=== PATIENT | female | born 1990 | race Caucasian/White ===

== ENCOUNTER 2016-09-03 18:00 | Emergency (ER) | payer SELFPAY ==
[~2016-09-03] VITALS: Ht 160 cm; Wt 105.9 kg
[~2016-09-03 18:00] MED LIST: CIPR250T2 PO; LORT5TAB PO; Z.0.NO CURRENT MEDS
[2016-09-03 18:03] VITALS: BP 159/109; PULSE 92; RESP 16; TEMP 98.1; O2SAT 100
[2016-09-03] MEDS ORDERED: SODIUM CHLOR 0.9% 1000 ML INJ 1,000 ML IV SCH (18:39)
--- NOTE | 2016-09-03 18:43 | PD ---
HPI Chief Complaint: GI Complaint Time Seen by Provider: 18:33 Travel History International Travel<30 days: No Contact w/Intl Traveler<30days: No Traveled to known affect area: No History of Present Illness HPI The patient is a 25-year-old female who presents to the emergency department for left flank pain. The patient states she was driving home at approximate 4:45 PM when she developed sharp left-sided flank pain. The pain was located in the lower aspect of her ribs and radiated from the left flank to the epigastrium. The pain was sharp, stabbing, associated with nausea. The patient arrived him and subsequently had 2 episodes of vomiting. She denied any shortness of breath, upper chest pain, or pleuritic chest pain. She denied any radiation of the pain down into the groin. She denied any dysuria, frequency, urgency, or hematuria. The pain at 4:45 PM was 10/10. Upon arrival the patient's pain was 6/10, is now improved to 4/10. She denies any history of known gastritis, pancreatitis, biliary colic. She denies any previous abdominal surgeries. The patient's last menstrual cycle was August 14, 2016, she denies . Her is been out of town 9 weeks. Symptoms are moderate, slightly self alleviating after vomiting, and there are no known exacerbating factors. The patient denies any associated history of pulmonary embolism, DVT, recent travel, recent surgeries, or recent hospitalizations. PFSH Past Medical History Cancer: No Diabetes: No Glaucoma: No Hepatitis: No Hiatal Hernia: No Hypertension: No Immunizations Current: Yes Thyroid Disease: No ?: Not LMP: 08/14/16 Past Surgical History Arteriovenous Shunt: Yes Pacemaker: No Tonsillectomy: Yes Other Surgery: Yes (RHINOPLASTY) Social History Alcohol Use: No Tobacco Use: No Substance Use: No Allergies-Medications (Allergen,Severity, Reaction): Coded Allergies: No Known Allergies (Verified , 09/03/16) Reported Meds & Prescriptions Reported Meds & Active Scripts Active No Active Prescriptions or Reported Medications Review of Systems Except as stated in HPI: all other systems reviewed are Neg General / Constitutional: No: Fever Cardiovascular: No: Chest Pain or Discomfort Respiratory: No: Shortness of Breath Gastrointestinal: Positive: Nausea, Vomiting, Abdominal Pain, No: Diarrhea Genitourinary: Positive: Flank Pain, No: Urgency, Frequency, Dysuria, Hematuria, Discharge Skin: No Rash Physical Exam Narrative GENERAL: Awake, alert, nontoxic-appearing 25-year-old female who appears her stated age and is in no acute respiratory distress. SKIN: Focused skin assessment warm/dry. HEAD: Atraumatic. Normocephalic. EYES: Pupils equal and round. No scleral icterus. No injection or drainage. ENT: No nasal bleeding or discharge. Mucous membranes pink and moist. NECK: Trachea midline. No JVD. CARDIOVASCULAR: Regular rate and rhythm. No murmur appreciated. Heart rate in the 80s. RESPIRATORY: No accessory muscle use. Clear to auscultation. Breath sounds equal bilaterally. GASTROINTESTINAL: Abdomen soft, obese, no rebound tenderness. Back: No CVA tenderness. MUSCULOSKELETAL: No obvious deformities. No clubbing. No cyanosis. No edema. Calves are soft bilaterally. NEUROLOGICAL: Awake and alert. No obvious cranial nerve deficits. Motor grossly within normal limits. Normal speech. PSYCHIATRIC: Appropriate mood and affect; insight and judgment normal. Data Data Last Documented VS Vital Signs Date Time Temp Pulse Resp B/P Pulse Ox O2 Delivery O2 Flow Rate FiO2 09/03/16 18:03 98.1 92 16 159/109 100 Orders Complete Blood Count With Diff (09/03/16 18:39) Comprehensive Metabolic Panel (09/03/16 18:39) Lipase (09/03/16 18:39) Urinalysis - C+S If Indicated (09/03/16 18:39) Iv Access Insert/Monitor (09/03/16 18:39) Ecg Monitoring (09/03/16 18:39) Oximetry (09/03/16 18:39) Morphine Inj (Morphine Inj) (09/03/16 18:45) Ondansetron Inj (Zofran Inj) (09/03/16 18:45) Sodium Chlor 0.9% 1000 Ml Inj (Ns 1000 M (09/03/16 18:39) Sodium Chloride 0.9% Flush (Ns Flush) (09/03/16 18:45) Electrocardiogram (09/03/16 18:39) Ketorolac Inj (Toradol Inj) (09/03/16 18:45) Ed Urine Pregnancytest Poc (09/03/16 18:39) Chest, Single Ap (09/03/16 ) [facility] Medical Decision Making Medical Screen Exam Complete: Yes Emergency Medical Condition: Yes Medical Record Reviewed: Yes Interpretation(s) EKG reveals normal sinus rhythm with a rate 85. No ischemic changes or ectopy noted. Differential Diagnosis Differential diagnosis includes nephrolithiasis, pyelonephritis, pulmonary embolism, pancreatitis, bowel gas pain, pericarditis, ectopic . Narrative Course IV was established, labs are drawn and sent, and the patient was placed on cardiac telemetry monitoring and continuous pulse oximetry monitoring. EKG was ordered and interpreted. The patient was administered morphine, Toradol, Zofran , and IV fluids. Chest x-ray was obtained. The patient was signed out at 7 PM laboratory evaluation pending. Scripts No Active Prescriptions or Reported Meds Condition: Stable Juan Pablo Sandhu MD Sep 03, 2016 18:43
[2016-09-03] MEDS ORDERED: KETOROLAC TROMETHAMINE 30 MG/ML (IVP) VIAL IVP ONE (18:45)
[2016-09-03] MEDS ORDERED: MORPHINE SULFATE 4 MG/ML INJ IV PUSH ONE (18:45)
[2016-09-03] MEDS ORDERED: SODIUM CHLORIDE 0.9% FLUSH 10 ML FLUSH IV FLUSH PRN (18:45)
[2016-09-03] MEDS ORDERED: ONDANSETRON HCL 4 MG/2 ML VIAL IVP ONE (18:45)
[2016-09-03 18:58] LABS: AUTOMATED NEUTROPHIL # 9.6 TH/MM3 (1.8-7.7); BASOPHIL % 0.3 % (0.0-2.0); EOSINOPHIL # 0.3 TH/MM3 (0-0.4); EOSINOPHIL % 2.5 % (0.0-4.0); LYMPH % 12.8 % (9.0-44.0); LYMPHOCYTE # 1.5 TH/MM3 (1.0-4.8); MEAN CELL VOLUME 82.2 FL (80.0-100.0); MEAN CORPUSCULAR HEMOGLOBIN 28.4 PG (27.0-34.0); MEAN CORPUSCULAR HGB CONC 34.5 % (32.0-36.0); MONO % 3.4 % (0.0-8.0); PLATELET COUNT 295 TH/MM3 (150-450); RED BLOOD COUNT 4.63 MIL/MM3 (4.00-5.30); WHITE BLOOD COUNT 11.8 TH/MM3 (4.0-11.0)
[2016-09-03 19:05] VITALS: BP 140/78; PULSE 88; RESP 18; TEMP 98.1; O2SAT 100
[2016-09-03 19:05] LABS: CHLORIDE 108 MEQ/L (98-107); SODIUM (NA) 142 MEQ/L (136-145)
[2016-09-03 19:09] LABS: ANION GAP 8 MEQ/L (5-15); BICARBONATE 26.2 MEQ/L (21.0-32.0); BLOOD UREA NITROGEN 13 MG/DL (7-18); HEMO FLAGS AUTO DIFF
[2016-09-03 19:12] LABS: ALT (GPT) 26 U/L (10-53); AST (GOT) 15 U/L (15-37); GLOMERULAR FILTRATION RATE 100 ML/MIN (>89)
[2016-09-03 19:14] LABS: TOTAL BILIRUBIN ADULT 0.3 MG/DL (0.2-1.0)
[2016-09-03 19:15] LABS: ALKALINE PHOSPHATASE 85 U/L (45-117)
--- NOTE | 2016-09-03 19:17 | RADRPT ---
EXAM DATE/TIME: 09/03/2016 18:51 [facility] COMPARISON: No previous studies available for comparison. INDICATIONS : Chest and abdominal pain. MEDICAL HISTORY : None. SURGICAL HISTORY : None. ENCOUNTER: Initial ACUITY: 1 day PAIN SCORE: 6/10 LOCATION: Bilateral lower chest FINDINGS: Portable AP view of the chest demonstrates a normal-sized cardiac silhouette. No effusion, consolidat ion, or pneumothorax is visualized. The bones and soft tissues demonstrate no acute abnormality. CONCLUSION: No acute cardiopulmonary abnormality is identified. Gerhard Castro MD on September 03, 2016 at 19:14 Board Certified Radiologist. This report was verified electronically.
[2016-09-03 19:24] LABS: SCAN/DIFF AUTO DIFF CONFIRMED
[2016-09-03 19:25] LABS: BLOOD, URINE TRACE (NEG); GLUCOSE,URINE NEG (NEG); KETONE, URINE NEG (NEG); NITRITE,URINE NEG (NEG)
[2016-09-03 19:30] VITALS: BP 113/67; PULSE 92; RESP 18; O2SAT 96
[2016-09-03 19:30] LABS: RBC, URINE 0-3 /hpf (0-3); URINE COLOR YELLOW (YELLW/STRAW); WBC, URINE 0-2 /hpf (0-5)
[2016-09-03 19:31] LABS: BACTERIA, URINE RARE /hpf; COMMENT (UR) CULT NOT INDICATED; CULTURE IF INDICATED CULT NOT INDICATED
[2016-09-03 20:00] VITALS: BP 124/72; PULSE 86; RESP 18; O2SAT 98
--- NOTE | 2016-09-03 20:09 | RADRPT ---
EXAM DATE/TIME: 09/03/2016 19:46 [facility] COMPARISON: No previous studies available for comparison. INDICATIONS : Left flank pain. ORAL CONTRAST: No oral contrast ingested. RADIATION DOSE: 27.88 CTDIvol (mGy) MEDICAL HISTORY : None SURGICAL HISTORY : None. ENCOUNTER: Initial ACUITY: 1 day PAIN SCALE: 8/10 LOCATION: flank TECHNIQUE: Volumetric scanning of the abdomen and pelvis was performed. Using automated exposure control and ad justment of the mA and/or kV according to patient size, radiation dose was kept as low as reasonably achievable to obtain optimal diagnostic quality images. FINDINGS: LOWER LUNGS: The visualized lower lungs are clear. LIVER: Liver is isodense to the spleen. No focal lesion is seen. There is no dilation of the biliary tree. No calcified gallstones. SPLEEN: Normal size without lesion. PANCREAS: Within normal limits. KIDNEYS: Left kidney is slightly smaller than right with areas of parenchymal scar. There is no hydronephrosis , stone, or mass. ADRENAL GLANDS: Within normal limits. VASCULAR: There is no aortic aneurysm. BOWEL/MESENTERY: The stomach, small bowel, and colon demonstrate no acute abnormality. There is no free intraperitone al air. There is trace free fluid in the pelvis in the posterior cul-de-sac. ABDOMINAL WALL: Within normal limits. RETROPERITONEUM: There is no lymphadenopathy. BLADDER: No wall thickening or mass. REPRODUCTIVE: Within normal limits. INGUINAL: There is no lymphadenopathy or hernia. MUSCULOSKELETAL: No acute abnormality. CONCLUSION: 1. No abnormality is identified to explain the patient's flank pain. No renal stones are present. 2. Trace free fluid in the pelvis is nonspecific but may be physiologic. 3. Mild hepatic steatosis. Gerhard Castro MD on September 03, 2016 at 20:04 Board Certified Radiologist. This report was verified electronically.
[2016-09-03] MEDS ORDERED: ZOFR4TAB3 SL (20:32)
--- NOTE | 2016-09-03 20:43 | PD ---
Physical Exam Date Seen by Provider: Sep 03, 2016 Time Seen by Provider: 19:30 Narrative accepted in transfer of care from Dr Sandhu GENERAL: Well-developed well-nourished female in no acute distress no respiratory distress SKIN: Warm and dry. HEAD: Normocephalic. EYES: No scleral icterus. No injection or drainage. NECK: Supple, trachea midline. No JVD or lymphadenopathy. CARDIOVASCULAR: Regular rate and rhythm without murmurs, gallops, or rubs. RESPIRATORY: Breath sounds equal bilaterally. No accessory muscle use. GASTROINTESTINAL: Abdomen soft, non-tender, nondistended. MUSCULOSKELETAL: No cyanosis, or edema. BACK: Nontender without obvious deformity. No CVA tenderness. Data Data Last Documented VS Vital Signs Date Time Temp Pulse Resp B/P Pulse Ox O2 Delivery O2 Flow Rate FiO2 09/03/16 19:49 18 09/03/16 19:05 100 Room Air 09/03/16 19:05 98.1 88 140/78 Orders Complete Blood Count With Diff (09/03/16 18:39) Comprehensive Metabolic Panel (09/03/16 18:39) Lipase (09/03/16 18:39) Urinalysis - C+S If Indicated (09/03/16 18:39) Iv Access Insert/Monitor (09/03/16 18:39) Ecg Monitoring (09/03/16 18:39) Oximetry (09/03/16 18:39) Morphine Inj (Morphine Inj) (09/03/16 18:45) Ondansetron Inj (Zofran Inj) (09/03/16 18:45) Sodium Chlor 0.9% 1000 Ml Inj (Ns 1000 M (09/03/16 18:39) Sodium Chloride 0.9% Flush (Ns Flush) (09/03/16 18:45) Electrocardiogram (09/03/16 18:39) Ketorolac Inj (Toradol Inj) (09/03/16 18:45) Ed Urine Pregnancytest Poc (09/03/16 18:39) Chest, Single Ap (09/03/16 ) Ct Abd/Pel W/O Iv Contrast (09/03/16 ) Labs Laboratory Tests Test 09/03/16 09/03/16 18:45 19:05 White Blood Count 11.8 TH/MM3 Red Blood Count 4.63 MIL/MM3 Hemoglobin 13.1 GM/DL Hematocrit 38.0 % Mean Corpuscular Volume 82.2 FL Mean Corpuscular Hemoglobin 28.4 PG Mean Corpuscular Hemoglobin 34.5 % Concent Red Cell Distribution Width 13.0 % Platelet Count 295 TH/MM3 Mean Platelet Volume 9.5 FL Neutrophils (%) (Auto) 81.0 % Lymphocytes (%) (Auto) 12.8 % Monocytes (%) (Auto) 3.4 % Eosinophils (%) (Auto) 2.5 % Basophils (%) (Auto) 0.3 % Neutrophils # (Auto) 9.6 TH/MM3 Lymphocytes # (Auto) 1.5 TH/MM3 Monocytes # (Auto) 0.4 TH/MM3 Eosinophils # (Auto) 0.3 TH/MM3 Basophils # (Auto) 0.0 TH/MM3 CBC Comment AUTO DIFF Differential Comment AUTO DIFF CONFIRMED Sodium Level 142 MEQ/L Potassium Level 4.0 MEQ/L Chloride Level 108 MEQ/L Carbon Dioxide Level 26.2 MEQ/L Anion Gap 8 MEQ/L Blood Urea Nitrogen 13 MG/DL Creatinine 0.71 MG/DL Estimat Glomerular Filtration 100 ML/MIN Rate Random Glucose 93 MG/DL Calcium Level 8.8 MG/DL Total Bilirubin 0.3 MG/DL Aspartate Amino Transf 15 U/L (AST/SGOT) Alanine Aminotransferase 26 U/L (ALT/SGPT) Alkaline Phosphatase 85 U/L Total Protein 7.4 GM/DL Albumin 3.5 GM/DL Lipase 171 U/L Urine Color YELLOW Urine Turbidity CLEAR Urine pH 6.0 Urine Specific [place] 1.023 Urine Protein NEG mg/dL Urine Glucose (UA) NEG mg/dL Urine Ketones NEG mg/dL Urine Occult Blood TRACE Urine Nitrite NEG Urine Bilirubin NEG Urine Leukocyte Esterase NEG Urine RBC 0-3 /hpf Urine WBC 0-2 /hpf Urine Squamous Epithelial 6-8 /hpf Cells Urine Bacteria RARE /hpf Microscopic Urinalysis Comment CULT NOT INDICATED [facility] Medical Record Reviewed: Yes Supervised Visit with ERNESTINA: No Interpretation(s) POC hcg: negative UA: trace blood; cx not indicated Last Impressions Chest X-Ray 09/03/16 0000 Signed Impressions: Service Date/Time: Saturday, September 03, 2016 18:51 - CONCLUSION: No acute cardiopulmonary abnormality is identified. Gerhard Castro MD Abdomen/Pelvis CT 09/03/16 0000 Signed Impressions: Service Date/Time: Saturday, September 03, 2016 19:46 - CONCLUSION: 1. No abnormality is identified to explain the patient's flank pain. No renal stones are present. 2. Trace free fluid in the pelvis is nonspecific but may be physiologic. 3. Mild hepatic steatosis. Gerhard Castro MD CBC & BMP Diagram 09/03/16 18:45 Vital Signs Date Time Temp Pulse Resp B/P Pulse Ox O2 Delivery O2 Flow Rate FiO2 09/03/16 19:49 18 09/03/16 19:49 18 09/03/16 19:05 100 Room Air 09/03/16 19:05 98.1 88 18 140/78 100 Room Air 09/03/16 18:03 98.1 92 16 159/109 100 Differential Diagnosis accepted in transfer of care from Dr Sandhu Narrative Course accepted in transfer of care from Dr Sandhu; follow up pending labs Labs wnl; PERC negative; Ct Renal stone protocol ordered CT neg acute findings; pain 0-03/25 -- patient stable for outpatient management; patient desirous of being discharged home will be given prescription for Zofran to take as needed encouraged to follow clear liquid diet for next 1224 hrs. advance as tolerated bland/[place] diet then regular diet avoid fried and fatty foods. Patient encouraged follow-up with primary care provider. Patient cursed return to emergency for free concerns or change in condition Diagnosis Primary Impression: Abdominal pain Qualified Code: R10.13 - Epigastric pain Referrals: Primary Care Physician Patient Instructions: General Instructions Departure Forms: Tests/Procedures, Work Release Special Instructions: no work x 1 day Additional Instruction: Increase fluid hydration May use ibuprofen/Advil/Motrin per package directions as often as every 6-8 hours for pain associated with inflammation May use Zofran as prescribed as needed for nausea and/or vomiting Follow clear liquid diet for next 12-24 hours advance as tolerated bland/[place] diet avoid fried and fatty foods with regular dietary intake Med/Other Pt SpecificInfo: Prescription(s) given Scripts Ondansetron Odt (Zofran Odt)4 Mg Tab4 Mg SL Q6HR PRN (Nausea/Vomiting) #10 TAB Ref 0 Prov:Candace White MD 09/03/16 Disposition: 01 DISCHARGE HOME Condition: Stable Candace White MD Sep 03, 2016 20:43
[2016-09-03 21:19] VITALS: BP 117/76
--- NOTE | 2016-09-04 13:44 | EKG ---
Date Performed: 09/03/2016 Time Performed: 19:01:08 PTAGE: 25 years EKG: Sinus rhythm NORMAL ECG NO PREVIOUS TRACING DOCTOR: Nena Walker Interpretating Date/Time 09/04/2016 13:42:21
== END 2016-09-03 21:19 | disposition home or self-care (01) ==
LOC: PHED 18:00
DX: R10.13 Epigastric pain (principal); R11.10 Vomiting, unspecified
CPT/HCPCS: 71010; 74176; 80053; 81001; 83690; 84703; 85025; 93005; 96361; 96374; 96375; 99285; J1885; J2270; J2405; J7030

== ENCOUNTER 2017-06-01 09:19 | Emergency (ER) | payer BC ==
[~2017-06-01] VITALS: Ht 160 cm; Wt 110.0 kg
[~2017-06-01 09:19] MED LIST changes: -CIPR250T2 PO; -LORT5TAB PO; -Z.0.NO CURRENT MEDS; +ZOFR4TAB3 SL
[2017-06-01 09:21] VITALS: BP 145/95; PULSE 91; RESP 18; TEMP 99.3; O2SAT 98
--- NOTE | 2017-06-01 09:56 | PD ---
HPI Chief Complaint: Musculoskeletal Complaint Time Seen by Provider: 09:39 Travel History International Travel<30 days: No Contact w/Intl Traveler<30days: No Traveled to known affect area: No History of Present Illness HPI This 26-year-old female is complaining of pain in both of her ankles. She had a fall night. sHe initially twisted her right foot and ankle and ended up also twisting her left ankle in the ensuing fall. She had gone to [facility] and was put in a stirrup on the left ankle and crutches. She is not able to bear weight on her right foot. PFSH Past Medical History Cancer: No Diabetes: No Glaucoma: No Hepatitis: No Hiatal Hernia: No Hypertension: No Immunizations Current: Yes Thyroid Disease: No ?: Not LMP: 05/15/17 Past Surgical History Arteriovenous Shunt: Yes Pacemaker: No Tonsillectomy: Yes Other Surgery: Yes (RHINOPLASTY) Social History Alcohol Use: No Tobacco Use: No Substance Use: No Allergies-Medications (Allergen,Severity, Reaction): Coded Allergies: No Known Allergies (Verified Adverse Reaction, Unknown, 06/01/17) Reported Meds & Prescriptions Reported Meds & Active Scripts Active No Active Prescriptions or Reported Medications Review of Systems General / Constitutional: No: Fever, Chills Eyes: No: Diploplia, Blurred Vision HENT: No: Headaches, Vertigo Cardiovascular: No: Chest Pain or Discomfort, Palpitations Respiratory: No: Cough, Shortness of Breath Gastrointestinal: No: Vomiting, Diarrhea Musculoskeletal: Positive: Edema, Pain, No: Myalgias Skin: No Rash, No Itching Hematologic/Lymphatic: No: Easy Bruising Physical Exam Narrative GENERAL: Well-developed female SKIN: Focused skin assessment warm/dry. HEAD: Atraumatic. Normocephalic. EYES: Pupils equal and round. No scleral icterus. No injection or drainage. ENT: No nasal bleeding or discharge. Mucous membranes pink and moist. NECK: Trachea midline. No JVD. CARDIOVASCULAR: Regular rate and rhythm. No murmur appreciated. RESPIRATORY: No accessory muscle use. Clear to auscultation. Breath sounds equal bilaterally. GASTROINTESTINAL: Abdomen soft, non-tender, nondistended. Hepatic and splenic margins not palpable. MUSCULOSKELETAL: No obvious deformities. No clubbing. There is swelling and tenderness of the right foot and ankle. There is tenderness at the base of the fifth metatarsal and also the lateral portion of the ankle. There is also swelling and tenderness of the left ankle NEUROLOGICAL: Awake and alert. No obvious cranial nerve deficits. Motor grossly within normal limits. Normal speech. PSYCHIATRIC: Appropriate mood and affect; insight and judgment normal. Data Data Last Documented VS Vital Signs Date Time Temp Pulse Resp B/P (MAP) Pulse Ox O2 Delivery O2 Flow Rate FiO2 06/01/17 09:21 99.3 91 18 145/95 (112) 98 Orders Orders Ankle, Complete ([id number]) (06/01/17 09:50) Foot, Complete ([id number]) (06/01/17 09:50) Ankle, Complete ([id number]) (06/01/17 09:50) [facility] Medical Decision Making Medical Screen Exam Complete: Yes Emergency Medical Condition: Yes Medical Record Reviewed: Yes Differential Diagnosis Differential includes fractured ankle, fracture fifth metatarsal, sprain Narrative Course X-rays are negative for fracture. Patient will be released with recommendations to keep the foot elevated. She will be off work for 2 days Diagnosis Primary Impression: Left ankle sprain Additional Impression: Right ankle sprain Departure Forms: Tests/Procedures, Work Release Enter return to work date: Jun 04, 2017 Additional Instructions: Keep feet elevated, avoid weightbearing Scripts No Active Prescriptions or Reported Meds Disposition: 01 DISCHARGE HOME Condition: Stable Harsha Marie MD Jun 01, 2017 09:56
--- NOTE | 2017-06-01 11:12 | RADRPT ---
EXAM DATE/TIME: 06/01/2017 10:18 [facility] COMPARISON: No previous studies available for comparison. INDICATIONS : Trip and fall, right lateral ankle pain. MEDICAL HISTORY : None. SURGICAL HISTORY : None. ENCOUNTER: Initial ACUITY: 4 - 6 days PAIN SCORE: 6/10 LOCATION: Right lateral ankle FINDINGS: Three view exam was performed of the right ankle. The bony structures are in normal alignment minima l soft tissue swelling lateral side without fracture. The ankle mortise is intact. No radiopaque fo reign bodies are seen. Bony mineralization is normal. CONCLUSION: Negative for fracture or dislocation. Follow up in 7-10 days is suggested if symptoms persist. Jase Middleton MD FACR on June 01, 2017 at 11:09 Board Certified Radiologist. This report was verified electronically.
--- NOTE | 2017-06-01 11:13 | RADRPT ---
EXAM DATE/TIME: 06/01/2017 10:18 [facility] COMPARISON: No previous studies available for comparison. INDICATIONS : Trip and fall, left lateral ankle pain. MEDICAL HISTORY : None. SURGICAL HISTORY : None. ENCOUNTER: Initial ACUITY: 4 - 6 days PAIN SCORE: 4/10 LOCATION: Left lateral ankle FINDINGS: Three view exam was performed of the left ankle. The bony structures are in normal alignment. No ev idence of fracture, dislocation, or soft tissue swelling. The ankle mortise is intact. No radiopaqu e foreign bodies are seen. Bony mineralization is normal. CONCLUSION: Negative for fracture or dislocation. Follow up in 7-10 days is suggested if symptoms persist. Jase Middleton MD FACR on June 01, 2017 at 11:11 Board Certified Radiologist. This report was verified electronically.
--- NOTE | 2017-06-01 11:13 | RADRPT ---
EXAM DATE/TIME: 06/01/2017 10:18 [facility] COMPARISON: No previous studies available for comparison. INDICATIONS : Trip and fall, right lateral foot pain. MEDICAL HISTORY : None. SURGICAL HISTORY : None. ENCOUNTER: Initial ACUITY: 4 - 6 days PAIN SCORE: 6/10 LOCATION: Right lateral foot FINDINGS: Three view examination of the right foot demonstrates no dislocation, or fracture. Minimal soft tiss ue swelling is evident. The tarsal bones appear intact. The interphalangeal and metatarsophalangeal joints are intact. The calcaneus is intact. Bony mineralization is normal. CONCLUSION: Negative for fracture or dislocation. Follow up in 7-10 days is suggested if symptoms persist. Jase Middleton MD FACR on June 01, 2017 at 11:10 Board Certified Radiologist. This report was verified electronically.
== END 2017-06-01 11:49 | disposition home or self-care (01) ==
LOC: PHED 09:19
DX: S93.402A Sprain of unspecified ligament of left ankle, initial encounter (principal); S93.401A Sprain of unspecified ligament of right ankle, initial encounter; W19.XXXA Unspecified fall, initial encounter
CPT/HCPCS: 73610; 73630; 99283